=== PATIENT | male | born 1975 | race American Indian/Alaskan Native ===

== ENCOUNTER → 2017-06-04 11:10 | Emergency (ER) | payer SELFPAY | END | disposition left against medical advice (07) | LOC: C.ER 11:10 | DX: Z02.89 Encounter for other administrative examinations (principal); R07.9 Chest pain, unspecified ==

== ENCOUNTER 2017-06-04 11:33 | Emergency (ER) | payer SELFPAY ==
[2017-06-04 11:53] VITALS: O2SAT 99
--- NOTE | 2017-06-04 12:25 | C.PDOC ---
History Of Present Illness 41 yr old male presents to the ER for evaluation of right upper chest pain and lower back pain for the pasy 2 weeks. Patient states the chest pain is exacerbated when he works out or does pull up. Patient denies trauma, fever, palpitations, SOB, nausea, vomiting, abdominal pain, diarrhea, constipation, dysuria, incontinence, weakness or numbness. Time Seen by Provider: 06/04/17 11:57 Chief Complaint (Nursing): Chest Pain History Per: Patient History/Exam Limitations: no limitations Onset/Duration Of Symptoms: Days (2 weeks) Current Symptoms Are (Timing): Still Present Past Medical History Reviewed: Historical Data, Nursing Documentation, Vital Signs Vital Signs: Last Vital Signs Temp 98.2 F 06/04/17 13:26 Pulse 86 06/04/17 13:26 Resp 16 06/04/17 13:26 BP 110/70 06/04/17 13:26 Pulse Ox 99 06/04/17 13:26 Family History: States: No Known Family Hx - Social History Hx Alcohol Use: No Hx Substance Use: No - Immunization History Hx Tetanus Toxoid Vaccination: No Hx Influenza Vaccination: Yes Hx Pneumococcal Vaccination: No Review Of Systems Except As Marked, All Systems Reviewed And Found Negative. Constitutional: Negative for: Fever Cardiovascular: Positive for: Chest Pain (Right sided). Negative for: Palpitations Respiratory: Negative for: Shortness of Breath Gastrointestinal: Negative for: Nausea, Vomiting, Abdominal Pain, Diarrhea, Constipation Genitourinary: Negative for: Dysuria, Incontinence Musculoskeletal: Positive for: Back Pain (Lower back pain) Neurological: Negative for: Weakness, Numbness Physical Exam - Physical Exam Appears: Non-toxic, No Acute Distress Skin: Warm, Dry, No Rash Head: Atraumatic, Normacephalic Oral Mucosa: Moist Neck: Normal, Normal ROM, Supple Chest: Symmetrical, No Tenderness Cardiovascular: Rhythm Regular, No Murmur Respiratory: Normal Breath Sounds, No Rales, No Rhonchi, No Stridor, No Wheezing Gastrointestinal/Abdominal: Normal Exam, Soft, No Tenderness, No Guarding, No Rebound Back: Normal Inspection, No CVA Tenderness Extremity: Normal ROM, No Swelling Neurological/Psych: Oriented x3, Normal Speech, Normal Motor, Normal Sensation ED Course And Treatment ECG: Interpreted By Me, Viewed By Me ECG Rhythm: Sinus Rhythm ECG Interpretation: Normal Interpretation Of ECG: Normal axis. Normal intervals. Rate From EC (BPM) O2 Sat by Pulse Oximetry: 99 (RA) Pulse Ox Interpretation: Normal - Radiology CXR: Viewed By Me, Read By Radiologist CXR Interpretation: Yes: No Acute Disease - Other Rad X-Ray - LS Spine X-Ray: Viewed By Me, Read By Radiologist Interpretation: PROCEDURE: Radiographs of the Lumbar Spine. HISTORY: low back pain. COMPARISON: No prior. FINDINGS: BONES: No acute compression fractures no retropulsed fragments. 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 DISC SPACES: Minor multilevel degenerative spondylosis. OTHER FINDINGS: None. 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 No acute compression fractures. Minor multilevel degenerative spondylosis Medical Decision Making Medical Decision Making: PLAN: * X-Ray - LS Spine * CXR * EKG * Motrin PO On re-exam, the patient is resting comfortably and reports improvement of symptoms. Lungs are CTA, heart is RRR, abdomen is soft, non-tender and patient is toleraing PO well. Ambulatory in the ED with steady gait. Follow up with the medical doctor within 1-2 days, return if worsened. Disposition - Disposition Referrals: [facility] [Outside] Disposition: HOME/ ROUTINE Disposition Time: 13:13 Condition: GOOD Additional Instructions: Follow up with the medical doctor within 1-2 days, return if worsened. Prescriptions: Ibuprofen [Motrin] 600 mg PO TID #21 tab Instructions: Musculoskeletal Pain (ED) Forms: [facility] (Thai) - Clinical Impression Clinical Impression: Musculoskeletal chest pain, Back pain - PA / DEVIL DOG / Resident Statement MD/DO has reviewed & agrees with the documentation as recorded. - Scribe Statement The provider has reviewed the documentation as recorded by the Scribe Venus Fish All medical record entries made by the Scribe were at my direction and personally dictated by me. I have reviewed the chart and agree that the record accurately reflects my personal performance of the history, physical exam, medical decision making, and the department course for this patient. I have also personally directed, reviewed, and agree with the discharge instructions and disposition.
--- NOTE | 2017-06-04 13:06 | RAD ---
HISTORY: chest pain, COMPARISON: No prior TECHNIQUE: Chest PA and lateral FINDINGS: LUNGS: No active pulmonary disease. PLEURA: No significant pleural effusion identified. No pneumothorax apparent. CARDIOVASCULAR: Normal. OSSEOUS STRUCTURES: No significant abnormalities. VISUALIZED UPPER ABDOMEN: Normal. OTHER FINDINGS: None. IMPRESSION: No active disease.
[2017-06-04 13:27] VITALS: BP 110/70; PULSE 86; RESP 16; TEMP 98.2
--- NOTE | 2017-06-04 13:37 | RAD ---
PROCEDURE: Radiographs of the Lumbar Spine. HISTORY: low back pain COMPARISON: No prior. FINDINGS: BONES: No acute compression fractures no retropulsed fragments. 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 DISC SPACES: Minor multilevel degenerative spondylosis. OTHER FINDINGS: None. 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 No acute compression fractures. Minor multilevel degenerative spondylosis
== END 2017-06-04 13:26 | disposition home or self-care (01) ==
LOC: C.ER 11:33
DX: R07.89 Other chest pain (principal); M54.5 Low back pain